=== PATIENT | female | born 1970 | race Caucasian/White ===

== ENCOUNTER 2018-06-10 08:17 | Emergency (ER) | payer OTHER ==
[~2018-06-10] VITALS: Ht 157.5 cm; Wt 95.3 kg
[2018-06-10] MEDS ORDERED: CANASA1000 MG RECTAL (08:32)
[2018-06-10] MEDS ORDERED: LIALDA1.2 GM PO (08:32)
[2018-06-10] MEDS ORDERED: ZOFRAN ODT4 MG PO (09:39)
[2018-06-10] MEDS ORDERED: HYDROCODON-ACE1 EAC7 PO (09:39)
[2018-06-10] MEDS ORDERED: CEFDINIR300 MG PO (09:39)
[2018-06-10] MEDS ORDERED: IBUPROFEN 800800 MG PO (09:39)
[2018-06-10 10:04] VITALS: BP 130/72
== END 2018-06-10 10:05 | disposition home or self-care (01) ==
LOC: M.ERS 08:17
DX: N76.4 Abscess of vulva (principal); Z88.1 Allergy status to other antibiotic agents; Z88.5 Allergy status to narcotic agent; Z88.8 Allergy status to other drugs, medicaments and biological substances; Z98.890 Other specified postprocedural states